=== PATIENT | female | born 1980 ===

== ENCOUNTER 2016-09-18 21:50 | Emergency (ER) | payer OTHER ==
--- NOTE | 2016-09-19 06:36 | OBHP ---
Datetime: 09/18/2016 22:00 IP Adm Impression: , intrauterine Admit Comment, IP Provider: at 32weeks came with cramping i the belly started 2 hrs ago, no vb, lof,+fm.no sex, no dysuria. obhx 2 x ,1 x sab, 1 x ta pmh denies med pnv all nkda psh denies soch denies ve closed ua =le ivf given. pt felt better. dc home no sex po hyration f/u in clinic in 2-3 days Pelvic Type - PN: Adequate Extremities - PN: Normal Abdomen - PN: Normal Back - PN: Normal Breast - PN: Normal Lungs - PN: Normal Heart - PN: Normal Thyroid - PN: Normal Neurologic - PN: Normal HEENT - PN: Normal General - PN: Normal FHR - Baseline A Provider: 130 Contraction Comments Provider: occ Vital Signs Provider: Reviewed; Within Normal Limits IP Chief Complaint: Uterine contractions NICHD Variability Prov Fetus A: Moderate 6-25bpm NICHD Accel Fetus A IP Provider: 15X15 FHR Category Provider Fetus A: Category I Dilatation, Provider: 0 Effacement, Provider: 0 Station, Provider: -3 Genitourinary Exam: Normal DTRs - PN: Normal
--- NOTE | 2016-09-19 06:36 | OBDCSUM ---
Datetime: 09/19/2016 06:34 Discharged to, Provider: Home Follow up at, Provider: 2-3 days Follow up in weeks, Provider: clinic Disch Activity Restrictions: Nothing in vagina - [place], tampons, douche Discharge Comment, Provider: nd home no sex po hyration f/u in clinic in 2-3 days Discharge Diagnosis Prov Other: 32weeks nst ctxs
[2016-09-19 09:31] LABS: RBC URINE 1 /hpf (0-3); URINE BACTERIA OCC (<OCC); URINE BILIRUBIN NEGATIVE (NEGATIVE); URINE BLOOD NEGATIVE (NEGATIVE); URINE COLOR YELLOW (YELLOW); URINE GLUCOSE (UA) NORMAL (Normal); URINE KETONE NEGATIVE (NEGATIVE); URINE LEUKOCYTE ESTERASE 1+ Leu/uL (Negative); URINE PROTEIN NEGATIVE (NEGATIVE); URINE UROBILINOGEN NORMAL mg/dL (0.2-1.0)
[2016-09-19 09:32] LABS: WBC URINE 4 /hpf (0-5)
== END 2016-09-19 07:50 | disposition home or self-care (01) ==
LOC: C.EROB 21:50
DX: O26.893 Other specified pregnancy related conditions, third trimester (principal); R10.30 Lower abdominal pain, unspecified; Z3A.32 32 weeks gestation of pregnancy

== ENCOUNTER 2016-11-14 17:15 | Inpatient (IN) | payer OTHER ==
[2016-11-14 17:44] VITALS: BMI 29.5
[2016-11-14] MEDS ORDERED: Lactated Ringer's 1,000 ML IV SCH (17:45)
[2016-11-14] MEDS ORDERED: Oxytocin 30 UNIT 30 UNITS/500 ML BAG IV SCH (18:15)
[2016-11-14 18:30] LABS: BASO % 0.4 % (0.0-2.0); EOS % 0.5 % (0.0-4.0); HEMATOCRIT 37.2 % (34.0-47.0); LYMPH # 2.2 K/uL (1.0-4.3); LYMPH % 33.9 % (20.0-40.0); MEAN CELL VOLUME 88.6 fL (81.0-99.0); MEAN CORPUSCULAR HGB CONC 33.9 g/dL (33.0-37.0); MEAN PLATELET VOLUME 10.5 fL (7.2-11.7); MONO # 0.5 K/uL (0.0-0.8); MONO % 8.1 % (0.0-10.0); NRBC % 0.1 % (0.0-2.0); RED CELL DISTRIBUTION WIDTH 13.4 % (11.5-14.5); WHITE BLOOD COUNT 6.5 K/uL (4.8-10.8)
[2016-11-14 18:42] LABS: CHLORIDE 104 mmol/L (98-107); SODIUM 133 mmol/L (132-148)
[2016-11-14 18:44] LABS: BILIRUBIN,TOTAL 0.4 mg/dL (0.2-1.3); CARBON DIOXIDE 18 mmol/L (22-30); GFR AFRICAN-AMERICAN > 60
[2016-11-14 18:45] LABS: ALB/GLOB RATIO 0.9 (1.0-2.1); ALKALINE PHOSPHATASE 270 U/L (38-126); ALT/SGPT 22 U/L (9-52); AST/SGOT 26 U/L (14-36); BLOOD UREA NITROGEN 10 mg/dL (7-17); GLUCOSE,RANDOM 108 mg/dL (65-105); TOTAL PROTEIN 7.3 g/dL (6.3-8.3)
[2016-11-14 18:46] LABS: RBC URINE 4 /hpf (0-3); URINE BACTERIA RARE (<OCC); URINE BILIRUBIN NEGATIVE (NEGATIVE); URINE BLOOD NEGATIVE (NEGATIVE); URINE COLOR Yellow (YELLOW); URINE GLUCOSE (UA) NORMAL (Normal); URINE KETONE NEGATIVE (NEGATIVE); URINE LEUKOCYTE ESTERASE 1+ Leu/uL (Negative); URINE PROTEIN 2+ mg/dL (NEGATIVE); URINE UROBILINOGEN NORMAL mg/dL (0.2-1.0); WBC URINE 19 /hpf (0-5)
--- NOTE | 2016-11-14 20:56 | OBHP ---
Datetime: 11/14/2016 16:55 IP Adm Impression: Term, intrauterine ; Active labor IP Admit Plan: Admit to unit; Initiate labor protocol Admit Comment, IP Provider: IUP at 39wks reporting with intense uterine contractions since the morni ng. Pt denies any VB or LOF. PNC at [facility] clinic. GBS- Negative. TOCO- q 3min., FHR- Category 1, Cx- 9.5cm/100/-2 Assessment: IUP at Term in Active labor. Plan: Admit to LND for labor monitoring and delivery Pelvic Type - PN: Adequate Extremities - PN: Normal Abdomen - PN: Normal Back - PN: Normal Breast - PN: Normal Lungs - PN: Normal Heart - PN: Normal Thyroid - PN: Normal Neurologic - PN: Normal HEENT - PN: Normal General - PN: Normal Presentation-Admit: Vertex FHR - Baseline A Provider: 140s Membranes, Provider: Intact Gestation - Est Wks by US: 39.0 EGA AdmitDate IP: 39.0 Vital Signs Provider: Reviewed IP Chief Complaint: Uterine contractions; Maternal discomfort NICHD Variability Prov Fetus A: Moderate 6-25bpm NICHD Accel Fetus A IP Provider: 15X15 FHR Category Provider Fetus A: Category I NICHD Decel Fetus A IP Provider: None Dilatation, Provider: 10 Effacement, Provider: 100 Genitourinary Exam: Normal DTRs - PN: Normal
--- NOTE | 2016-11-14 20:59 | OBDS ---
DELIVERY PERSONNEL Delivery Doctor: kenneth MATERNAL INFORMATION Delivery Anesthesia: None Medications in Delivery: pitocin 20 Estimated Blood Loss (ml): 100 Placenta Cultured: No Maternal Complications: None Provider Comments: Uncomplicated of a viable male with BW 3305gms and scores of 9 and 9. Clear amniotic fluid. LABOR SUMMARY EDC: 11/21/2016 00:00 No. Babies in Womb: 1 Attempted: No Labor Anesthesia: None LABOR INFORMATION Onset of Labor: 11/14/2016 11:00 Complete Dilatation: 11/14/2016 17:40 Oxytocin: N/A Steroids Given: None Reason Steroids Not Administered: Not Applicable MEMBRANES Membranes Rupture Method: Spontaneous Rupture of Membranes: 11/14/2016 17:40 Length of Rupture (hrs): 0.17 Amniotic Fluid Color: Clear Amniotic Fluid Amount: Small Amniotic Fluid Odor: Normal STAGES OF LABOR Stage 1 hrs: 6 Stage 1 min: 40 Stage 2 hrs: 0 Stage 2 min: 10 Stage 3 hrs: 0 Stage 3 min: 5 Total Time in Labor hrs: 6 Total Time in Labor min: 55 VAGINAL DELIVERY Episiotomy: None Laceration Extension: N/A Laceration Type: None Initial Vag Sponge Count: 10 Final Vag Sponge Count: 10 Initial Vag Sharps Count: 0 Final Vag Sharps Count: 0 Sponge Count Correct: Yes BABY A INFORMATION Delivery Date/Time: 11/14/2016 17:50 Method of Delivery: Vaginal Born in Route : No : N/A Forceps: N/A Vacuum Extraction: N/A Shoulder Dystocia : No SHOULDER DYSTOCIA BABY A Delivery Date/Time: 11/14/2016 17:50 PRESENTATION/POSITION BABY A Presentation: Cephalic Cephalic Presentation: Face Vertex Position: Right Occipital Posterior Breech Presentation: N/A PLACENTA INFORMATION BABY A Placenta Delivery Time : 11/14/2016 17:55 Placenta Method of Delivery: Spontaneous Placenta Status: Delivered SCORES BABY A Heart Rate 1 min: >100 bpm Resp Effort 1 min: Slow, Irregular Reflex Irritability 1 min: Cough or Sneeze or Pulls Away Muscle Tone 1 min: Active Motion Color 1 min: Body [place], Extremities Blue Resuscitation Effort 1 min: Tactile Stimulation; Oxygen SCORE 1 MIN: 8 Heart Rate 5 min: >100 bpm Resp Effort 5 min: Slow, Irregular Reflex Irritability 5 min: Cough or Sneeze or Pulls Away Muscle Tone 5 min: Active Motion Color 5 min: Body [place], Extremities Blue SCORE 5 MIN: 8 INFANT INFORMATION BABY A Gestational Age at Delivery: 39.0 Gestational Status: Term Infant Outcome : Liveborn Infant Condition : Stable Sex: Male IDENTIFICATION/MEDS BABY A ID Band Number: [id number] ID Band Location: Left Leg; Left Arm Sensor Applied: Yes Sensor Number: [id number] Sensor Location : Cord Clamp WEIGHT/LENGTH BABY A Infant Birthweight (gms): 3305 Infant Weight (lb): 7 Weight (oz): 5 Infant Length Inches: 21.25 Infant Length cms: 54.0 CORD INFORMATION BABY A No. Cord Vessels: 3 Nuchal Cord : Around Neck x1, Loose Cord Blood Taken: Yes Suction: Mouth; Nose ASSESSMENT BABY A Complications: None Physical Findings at Delivery: Within Normal Limits Physical Findings Other: phill on left leg Respirations: Grunting Care By: clementine Transferred To: Remains with Mother
--- NOTE | 2016-11-15 07:41 | OBPPN ---
Datetime: 11/15/2016 07:37 PP Pain Prov: Within normal limits PP Nausea Prov: Denies PP Flatus Prov: Yes PP BM Prov: No PP Heart Prov: Normal PP Lungs Prov: Normal PP Abdomen/Uterus Prov: Normal PP Lochia Prov: Normal PP Vulva/Perineum Prov: Normal PP CVA Tenderness Prov: Normal PP Extremities Prov: Normal PP C/S Incision Prov: Not Applicable PP Progress Prov: Normal PP Impression Prov: Normal progression PP Plan Prov: Continue present management PP Progress Note Prov: S-patient reports that her pain is well controlled. she denies nausea, vomiti ng, headache, chest pain, shortness of breath,numbness or tingling in hands and feet O-VSS AFebrile Fundus firm and below umbilcius extremities no calf tenderness A/P Patient s/p ppd1 doing well -regular diet -po fluids -follow up am cbc -anticipate discharge tomorrow Vital Signs Provider PP: Reviewed; Within Normal Limits
[2016-11-15 08:10] LABS: BASO % 0.3 % (0.0-2.0); EOS # 0.1 K/uL (0.0-0.7); EOS % 0.6 % (0.0-4.0); HEMATOCRIT 33.4 % (34.0-47.0); LYMPH # 2.4 K/uL (1.0-4.3); LYMPH % 24.5 % (20.0-40.0); MEAN CORPUSCULAR HEMOGLOBIN 29.7 pg (27.0-31.0); MEAN CORPUSCULAR HGB CONC 33.7 g/dL (33.0-37.0); MONO # 0.7 K/uL (0.0-0.8); MONO % 7.4 % (0.0-10.0); WHITE BLOOD COUNT 9.7 K/uL (4.8-10.8)
--- NOTE | 2016-11-16 07:46 | OBPPN ---
Datetime: 11/16/2016 07:43 PP Pain Prov: Within normal limits PP Nausea Prov: Denies PP Flatus Prov: Yes PP Breasts Prov: Normal PP Heart Prov: Normal PP Lungs Prov: Normal PP Abdomen/Uterus Prov: Normal PP Lochia Prov: Normal PP Vulva/Perineum Prov: Normal PP CVA Tenderness Prov: Normal PP Extremities Prov: Normal PP Progress Prov: Normal PP Comments Phys Exam Prov: Abd: Soft, NT, BS- present UT- Firm PP Impression Prov: Normal progression PP Plan Prov: Discharge PP Progress Note Prov: S/P , Clinically Stable Plan: D/C Home. Vital Signs Provider PP: Reviewed
--- NOTE | 2016-11-16 07:47 | OBDCSUM ---
Datetime: 11/16/2016 07:45 Discharged to, Provider: Home Follow up at, Provider: [facility] Disch Instr Activity: Normal activity Disch Instr Diet: Regular Discharge Instructions, Provider: Routine instructions given Discharge Diagnosis, Provider: Term Delivered Discharge Time: 11/16/2016 07:45 Follow up in weeks, Provider: 6 Weeks Disch Referrals: None Contraception discussed, Prov: Yes Discharge Comment, Provider: S/P Uncomplicated , Clinically Stable. Discharge Diagnosis Prov Other: S/P Uncomplicated , Clinically Stable.
[2016-11-16 09:16] VITALS: BP 108/64; PULSE 70; RESP 18; TEMP 97.7; O2SAT 97
== END 2016-11-16 12:51 | disposition home or self-care (01) | DRG 373 ==
LOC: C.EROB 17:15 → C.4D 17:24 → C.4M 21:03
PROVIDERS: ADMIT Obstetrics & Gynecology; ATTEND Obstetrics & Gynecology
PROC: 10E0XZZ Delivery of Products of Conception, External Approach (ICD-10-PCS; principal; 2016-11-14)
DX: O69.81X0 Labor and delivery complicated by cord around neck, without compression, not applicable or unspecified (principal); O09.523 Supervision of elderly multigravida, third trimester; Z37.0 Single live birth; Z3A.39 39 weeks gestation of pregnancy

== ENCOUNTER 2018-07-22 20:32 | Emergency (ER) | payer OTHER ==
[2018-07-22 20:33] VITALS: BMI 29.5
--- NOTE | 2018-07-22 20:54 | C.PDOC ---
History Of Present Illness 37 y/o female with no significant PMH presents to the ED c/o right upper dental pain x 2 weeks. Pt was prescribed 7 days of Clindamycin by her PMD which she finished 4 days ago. Her pain was temporarily relieved but returned last night with associated redness and swelling. Pt also visited a dentist that referred her to an oral surgeon for a root canal. Pt has not yet followed up with the oral surgeon. Has not taken any medication for pain. Denies fevers, chills, vision changes, facial pain, headache, dizziness, lightheadedness, chest pain, SOB, abdominal pain, N/V/D, or any other associated symptoms. Time Seen by Provider: 07/22/18 20:45 Chief Complaint (Nursing): Dental Pain History Per: Patient History/Exam Limitations: no limitations Onset/Duration Of Symptoms: Days Current Symptoms Are (Timing): Still Present Severity: Moderate Past Medical History Reviewed: Historical Data, Nursing Documentation, Vital Signs - Medical History PMH: No Chronic Diseases - [facility] Procedures DELIVERY OF PRODUCTS OF CONCEPTION, EXTERNAL APPROACH (11/14/16) Family History: States: No Known Family Hx Review Of Systems Except As Marked, All Systems Reviewed And Found Negative. Constitutional: Negative for: Fever, Chills Eyes: Negative for: Vision Change ENT: Positive for: Mouth Pain (right upper dental pain), Mouth Swelling (gum swelling around right upper molars). Negative for: Ear Pain, Nose Pain, Throat Pain, Throat Swelling Cardiovascular: Negative for: Chest Pain, Palpitations Respiratory: Negative for: Cough, Shortness of Breath Gastrointestinal: Negative for: Nausea, Vomiting, Abdominal Pain Musculoskeletal: Negative for: Neck Pain, Back Pain Skin: Negative for: Rash Neurological: Negative for: Weakness, Numbness, Headache, Dizziness Physical Exam - Physical Exam Appears: Well, Non-toxic, No Acute Distress Skin: Normal Color, Warm, Dry Head: Atraumatic, Normacephalic, No Tenderness, No Swelling Eye(s): bilateral: Normal Inspection, PERRL, EOMI Ear(s): Bilateral: Normal Nose: Normal Oral Mucosa: Moist Tongue: Normal Appearing, No Swelling Lips: Normal Appearing, No Swelling Teeth: Caries (throughout), Tender To Palpation (right upper molars), No Loose, No Avulsed Gingiva: Erythema (aroud right upper molars), Swelling (around right upper molars), Tender (around right upper molars), No Bleeding, No Abscess Throat: Normal Neck: Normal, Normal ROM, Supple, No Other (no meningeal signs) Lymphatic: Normal Exam Cardiovascular: Rhythm Regular Respiratory: Normal Breath Sounds Gastrointestinal/Abdominal: Soft, No Tenderness Extremity: Normal ROM Pulses: Left Radial: Normal, Right Radial: Normal Neurological/Psych: Oriented x3, Normal Speech, Normal Cranial Nerves, Normal Motor, Normal Sensation Gait: Steady Medical Decision Making Medical Decision Making: Will prescribe a 7 day course of Augmentin secondary to return of dental pain and presumed infection and advise patient to followup with oral surgeon within the next 2 days. Pt verbalized understanding and states she will followup as instructed. Diagnostic testing results and plan of care discussed with patient. Strict instructions given regarding prescription use, importance of followup, and signs/symptoms to return to ER including facial pain, numbness, vision changes, fevers, chills, nausea, vomiting, or any other new/worsening symptoms. Pt verbalized understanding of discussion. Patient is A&Ox3, ambulating with steady gait, with vital signs stable for discharge. Disposition - Disposition Referrals: [facility] [Outside] Disposition: HOME/ ROUTINE Disposition Time: 21:30 Condition: GOOD Additional Instructions: Augmentin dos veces al da baltazar 7 cornelius Seguimiento con cirujano oral segn las instrucciones. Ibuprofeno cada 8 horas segn sea necesario para el dolor. Seguimiento con mdico primario en 2 cornelius. Regrese a la jonh de emergencias con cualquier sntoma nuevo o que empeore Prescriptions: Amoxicillin/Clavulanate [Augmentin 875 MG-125 MG] 1 tab PO Q12 #13 tab Ibuprofen [Motrin Tab] 600 mg PO Q8 #30 tab Instructions: Tooth Abscess (DC), Dental Pain (DC) Forms: Gen Discharge Inst Croatian, [employer] (Croatian), Work Excuse Print Language: ESTONIAN - Clinical Impression Clinical Impression: Dental caries, Pain, dental
[2018-07-22 20:57] VITALS: BP 131/72; PULSE 66; RESP 20; TEMP 98.2; O2SAT 100
[2018-07-22] MEDS ORDERED: Amoxicillin-Clav 875-125 mg Tab PO STA (20:59)
[2018-07-22] MEDS ORDERED: Amoxicillin-Clav 875-125 mg Tab PO ONE (21:08)
== END 2018-07-22 21:49 | disposition home or self-care (01) ==
LOC: C.ER 20:32
DX: K02.9 Dental caries, unspecified (principal)
CPT/HCPCS: 81025; 96372; 99283; J1885